=== PATIENT | female | born 1965 | race Caucasian/White ===

== ENCOUNTER → 2017-05-06 | Outpatient (CLI) | payer OTHER ==
[~2017-05-06] MED LIST: LIPITOR 20 MG T20 M1 PO; LISINOPRIL20 MG PO; NORCO 5-325 TA1 EAC1 PO; SINGULAIR 10 MG10 M1 PO; ZOFRAN4 MG PO
== END ==
LOC: M.ULTRA 13:32
DX: E04.2 Nontoxic multinodular goiter (principal)

== ENCOUNTER → 2017-09-02 | Outpatient (CLI) | payer OTHER ==
[2017-09-02 17:03] LABS: CREATININE 0.9 mg/dL (0.6-1.3)
== END ==
LOC: M.LAB 08:00 → M.CT 18:30
PROVIDERS: Urology
DX: D49.512 Neoplasm of unspecified behavior of left kidney (principal)

== ENCOUNTER → 2018-03-26 | Outpatient (CLI) | payer OTHER | LOC: M.RAD 03-04 16:00 | DX: E28.39 Other primary ovarian failure (principal); Z78.0 Asymptomatic menopausal state ==